=== PATIENT | female | born 1950 | race Caucasian/White ===

== ENCOUNTER 2016-06-14 16:53 | Emergency (ER) | payer SELFPAY ==
--- NOTE | ~2016-06-14 | CR63 ---
[facility]. [facility] A Service of [facility] RADIOLOGY TEXT RESULTS PATIENT: POLA EVERETT LOCATION: SED : 52 UNIT #: [id number] AGE: [address]: Carlos Barber MD SEX: F ORDER DR: [id number] [place] [id number] E MR#: [id number] Acc #: [id number] NAME: POLA EVERETT : 1950 SEX: F STUDY DATE/TIME: 06/14/2016 16:29 UNIT: SED ROOM: STUDY DESCRIPTION: CR Chest 2 View Attending Physician: Carlos Barber M.D. Ordering Physician: Carlos Barber M.D. Primary Care Physician: Keyur Miller M.D. MEDICAL IMAGING REPORT This report is preliminary unless electronic signature is present. EXAM Two view chest. HISTORY Body aches, cough, chills, congestion x4 days. COMPARISON 06/22/2015 FINDINGS Two views of the chest demonstrate moderate lung volumes, slightly underpenetrated technique. No infiltrates or effusions. Heart and mediastinum unremarkable. Coarse parenchymal markings may represent sequela of previous inflammatory disease. Osseous structures are unremarkable for age. IMPRESSION No active disease. Dictated by... Ami Mendez M.D. THIS IS AN ELECTRONICALLY VERIFIED REPORT Ami Mendez M.D. at 06/15/2016 10:05 AM KIMBERLEY/america TD: 06/15/2016 08:37 JOB #: [id number] [facility]. [facility] A Service [facility] RADIOLOGY TEXT RESULTS PATIENT: POLA EVERETT LOCATION: SED : 52 UNIT #: [id number] AGE: [address]: Carlos Barber MD SEX: F ORDER DR: MEDICAL IMAGING REPORT Page 1 of 1
[~2016-06-14 16:53] MED LIST: ALBUTEROL17 GM INH; ASPIRIN81 M1 PO; ASPIRIN81 MG PO; GLUCOPHAGE500 MG PO; LISINOPRIL20 MG PO; LORTAB 10-3251 EACH PO; LORTAB 10-5001 EACH PO; METFORMIN HCL500 M1 PO; PAXIL PO; PERCOCET 5/321 UDTAB PO; PERCOCET 7.5-31 EACH PO; PRAVASTATIN SOD40 MG PO; PRINIVIL10 MG PO; ROBITUSSIN DM PO; ZITHROMAX PO; ZITHROMAX1 G/PKT PO
[2016-06-14 16:57] LABS: INFLUENZA A NEG (NEG); INFLUENZA B NEG (NEG)
== END 2016-06-14 17:16 | disposition home or self-care (01) ==
LOC: SED 16:53
PROVIDERS: Emergency Medicine
DX: J06.9 Acute upper respiratory infection, unspecified (principal); E11.9 Type 2 diabetes mellitus without complications; I10 Essential (primary) hypertension; Z98.890 Other specified postprocedural states; Z88.0 Allergy status to penicillin; Z88.5 Allergy status to narcotic agent; Z79.899 Other long term (current) drug therapy; Z79.84 Long term (current) use of oral hypoglycemic drugs
CPT/HCPCS: 71020; 87804; 99283

== ENCOUNTER 2016-06-21 09:45 | Inpatient (IN) | payer MEDICARE ==
--- NOTE | ~2016-06-21 | CO ---
Unit #: [id number] #: [id number] Patient: POLA EVERETT [id number] [address] [place], [place] [address] [id number] I MR#: [id number] NAME: POLA EVERETT. ROOM: 568 Age: 66 Sex: F Admission Date: 06/21/2016 : 1950 Attending Physician: Mars Do M.D. Primary Care Physician: Keyur Miller M.D. Consultation Date: 06/22/2016 CONSULTATION REPORT REASON FOR CONSULTATION Possible pneumonia. HISTORY OF PRESENT ILLNESS The patient is a 66-year-old female who had a fairly impressive tobacco history but quit 15 years ago and was totally asymptomatic from a pulmonary point of view until about a week ago. She developed cough, wheezing and sputum production. She also had nausea, vomiting, diarrhea. She presented to the emergency room at [facility] and was treated with unclear medications. She had continued symptoms. She apparently was re-evaluated in the emergency room and, according to the EHR, she had saturations of 88% on room air, wheezing and was admitted. She has been treated with antibiotics intravenously for possible community-acquired pneumonia as well as steroids and breathing treatments. She feels dramatically better today. She states she can perform all activities of daily living and she is eating well. Her sputum production has resolved and her wheezing has improved. PAST MEDICAL HISTORY Remarkable for: 1. Hypertension. 2. Diabetes. 3. Anxiety/depression. 4. Chronic back pain. She denies lung disease. She denies heart disease. In fact, tells me that she had a cardiac catheterization two years ago that was "negative." MEDICATIONS Her medications at home: 1. She is on no inhaled medications, no oxygen. 2. She is on pravastatin. 3. Aspirin. 4. Glucophage. 5. Lisinopril. 6. Lortab. 7. Paxil. ALLERGIES Penicillin and codeine. SOCIAL HISTORY Quit smoking 15 years ago but a massive amount of tobacco use, smoking two or three packs a day for 28 years. Unit #: [id number] #: [id number] Patient: POLA EVERETT FAMILY HISTORY Colon cancer. REVIEW OF SYSTEMS Her nausea and vomiting have resolved. There is no documented fever although she felt warm. No chest pain, palpitations. She denies abdominal pain, melena, hematochezia, hematemesis. She has some aching in both left and upper quadrants when she coughs. No acute leg pain. She has some chronic pain. No leg swelling, focal weakness, paresthesias. Further review of systems negative. PHYSICAL EXAMINATION GENERAL: Examination reveals a patient who is in no acute distress. She is on 2 L of oxygen, 5 foot 7, 251 pounds. BMI is 39. VITAL SIGNS: She is afebrile, pulse 74, respiratory rate 16, blood pressure 128/59. HEENT: Pupils equal, round, reactive to light. Sclerae anicteric. Head atraumatic. Neck supple. No supraclavicular or cervical adenopathy appreciated. Mucous membranes moist. CHEST: Some expiratory wheeze, scattered. A few crackles which resolve with ventilation maneuvers. No definite consolidation, no stridor. CARDIAC EXAMINATION: Reveals a regular rate and rhythm. No pathologic murmur, rub or gallop. ABDOMEN: Soft, nontender. No hepatomegaly or rebound. EXTREMITIES: No clubbing, cyanosis or edema. No calf tenderness. SKIN: Warm and dry without rash or diaphoresis. NEUROLOGICAL: Grossly intact with no focal muscle or sensory deficits. DIAGNOSTIC STUDIES IMAGING: Chest x-ray was negative. LABORATORY: Glucose is 408, BUN is 18, creatinine 0.7, sodium mild low at 133, BNP is 13. Procalcitonin is negative and basically undetectable. INR was normal. Cardiac enzymes normal. CBC normal. Flu screen negative. Tox screen - glucosuria. Blood cultures performed and are pending. CARDIOVASCULAR: Rhythm strip - sinus. EKG - some nonspecific ST-T wave changes. IMPRESSION 1. Asthmatic bronchitis but no evidence of pneumonia. 2. Possible underlying chronic obstructive pulmonary disease, previously asymptomatic. 3. Hypoxic respiratory failure. 4. Diabetes with marked hyperglycemia secondary to steroids. 5. Hypertension. 6. Obesity, possible sleep apnea. PLAN Change to oral medications including Zithromax and prednisone for a short Unit #: [id number] #: [id number] Patient: POLA EVERETT abdon. I will add inhaled corticosteroids and long acting beta agonists. I would suggest continuing this for approximately six to eight weeks as an outpatient with re-evaluation in the office. We will check PFTs. I suspect that she will not need prolonged inhaled controlling agents. Given her multiple comorbid conditions, consider outpatient nocturnal polysomnography for sleep apnea. Thank you very much for allowing me to participate in the care of Ms. Everett. Dictated by... Hardik Null M.D. FAVIAN/heidi TD: 06/22/2016 11:36 JOB #: [id number] CONSULTATION REPORT Page 1 of 1 X Hardik Null MD X CONSULTATION REPORT
--- NOTE | ~2016-06-21 | HP ---
Unit #: [id number] #: [id number] Patient: POLA EVERETT [id number] [place] [id number] [facility]. [place], [place] [address] [id number] I MR#: [id number] NAME: POLA EVERETT. ROOM: 19207 Age: 66 Sex: F Admission Date: 06/21/2016 : 1950 Attending Physician: Raven Camilo M.D. Primary Care Physician: Keyur Miller M.D. HISTORY AND PHYSICAL CHIEF COMPLAINT Short of air, low oxygen saturation. HISTORY OF PRESENT ILLNESS The patient is a 66-year-old female with past medical history of diabetes, hypertension and chronic back pain who presented to the emergency department for evaluation of the above. The patient states that she has had about a 1-week history of increasing shortness of breath, productive cough, chills and undocumented fever. She has been feeling increasingly weak for the past couple of days. She states that she has been somewhat lightheaded and had a few falls. She denies any loss of consciousness. She states that she last fell yesterday. She states that she was getting up from a seated position and felt lightheaded and fell. She denies any chest pain. She states that she has had decreased appetite with 3 bouts of nonbloody emesis within the past 24 hours and 1-2 bouts of nonbloody diarrhea. The patient was seen at [facility] Emergency Department on June 14, 2016 and diagnosed with upper respiratory infection. She was discharged home with an unknown cough syrup. She presented to [facility] Emergency Department today for evaluation. Oxygen saturation was noted to be 88% on room air. Chest x-ray was negative. She was given Rocephin and azithromycin for clinical pneumonia. She is being admitted to [facility] for evaluation and further treatment. PAST MEDICAL HISTORY 1. Admission to [facility] October 24, 2009 for right upper quadrant pain. 2. Hypertension. 3. Diabetes. 4. Likely COPD. 5. Chronic back pain, maintained on narcotics. PAST SURGICAL HISTORY 1. . 2. Right Achilles tendon surgery. SOCIAL HISTORY The patient is a former smoker. She states that she smoked 2-3 packs of cigarettes for 28 years. She quit smoking 15 years ago. There is no Unit #: [id number] #: [id number] Patient: POLA EVERETT alcohol use. She lives with her son. FAMILY HISTORY Notable for her dad having colon cancer. ALLERGIES Penicillin and codeine. HOME MEDICATIONS 1. Pravastatin 40 mg daily. 2. Aspirin 81 mg daily. 3. Glucophage 500 mg daily. 4. Lisinopril HCTZ 20/12.5 daily. 5. Lortab 10/325 q.8 hours p.r.n. 6. Paxil, unknown dose. REVIEW OF SYSTEMS A complete review of systems is negative except as indicated in the HPI. The patient does not routinely check her blood sugars but states that, when she does, it is typically in the 100s. PHYSICAL EXAMINATION VITAL SIGNS: Temperature is 98.6, pulse 105, respirations 16, blood pressure 132/67, oxygen saturation 88% on room air. GENERAL: The patient is a female who is sleeping but awakes to voice. HEENT: The head is atraumatic. Mucous membranes are moist. NECK: Supple. Trachea is midline. CARDIOVASCULAR: Regular rate and rhythm. RESPIRATORY: Lungs demonstrate scattered wheezes and rhonchi. Breathing is not labored with conversation. ABDOMEN: Obese, soft, nontender with bowel sounds present in all 4 quadrants. EXTREMITIES: Extremities are nontender with no pedal edema. NEUROLOGIC: The patient is awake and alert. She follows commands. PSYCHIATRIC: Mood and affect are normal. The patient is cooperative. SKIN: Skin is generally diaphoretic. DIAGNOSTIC TESTS CARDIOVASCULAR: EKG shows sinus tachycardia with a rate of 107 beats per minute. IMAGING: Chest x-ray is negative. LABORATORY: Complete blood count is essentially normal. Rapid flu screen is negative. INR is 1.1. Comprehensive metabolic panel notable for sodium of 133, potassium 3.3, chloride 96, glucose 260. Lactic acid is 1.4. Troponin is less than 0.05. BNP is 13. Rapid strep screen in negative. Urinalysis notable for 500 glucose. ASSESSMENT 1. The patient is a 66-year-old female with acute respiratory failure, hypoxic. 2. Pneumonia, community acquired. The patient received Rocephin and azithromycin in the emergency department. 3. Hypokalemia with a potassium of 3.3. 4. Uncontrolled diabetes. Glucose was 260 on Accu-Cheks. 5. Likely COPD. The patient has a 90+ pack-year smoking history but did Unit #: [id number] #: [id number] Patient: POLA EVERETT quit 15 years ago. 6. Hypertension. 7. Chronic back pain, maintained on narcotics. 8. Morbid obesity with a BMI of 40. PLAN 1. Admit to intermediate level. 2. Healthy heart, consistent carb diet. 3. Supplemental oxygen at 2-4 liters to maintain saturations greater than 92%. 4. DuoNeb q.4 hours while awake and q.2 hours p.r.n. 5. Solu-Medrol 80 mg IV q.12 hours. 6. Mucinex 600 mg p.o. b.i.d. 7. Tessalon Perles 100 mg 1-2 p.o. t.i.d. p.r.n. 8. Blood cultures x2. 9. Sputum culture and sensitivity. 10. Check procalcitonin level. 11. Rocephin and azithromycin IV for community acquired pneumonia pending further workup. 12. Check magnesium level. 13. Potassium/magnesium protocol. 14. Hemoglobin A1C. 15. Low dose sliding scale insulin with Accu-Cheks. 16. Serial cardiac enzymes. 17. Tylenol p.r.n. 18. Zofran p.r.n. 19. Protonix for GI prophylaxis since the patient will be on Solu-Medrol. 20. SCDs for DVT prophylaxis. 21. Additional workup and consultants based on above. Dictated by Eric Mcnamara/ava TD: 06/21/2016 14:22 JOB #: [id number] HISTORY AND PHYSICAL Page 1 of 1 X Raven Camilo MD X HISTORY AND PHYSICAL
--- NOTE | ~2016-06-21 | A ---
[facility] Nutrition Therapy DATE: 06/23/16 Patient: POLA EVERETT Physician: RUBEN Address: [address] [facility] Room/Bed: [address] [place] [address], Zip: [place] [address] Admit Date: 06/21/16 Date of : [birth year] Height: 5 7 Weight: 252 114.6 NUTRITIONAL ASSESSMENT: REASON: Diet education RE: diabetes 66 yo female admitted for shortness of air Anthropometrics: Ht: 5'7" Wt: 114.5 kg (252#) BMI: 39.5 Assessment: RD video production intern provided written and verbal diabetic diet education. Pt reported eating "whatever, whenever". Pt stated blood sugars levels have been elevated in the 300-400s since admission, states normal level is ~160. Pt reports not eating consistently throughout the day, eating 1-2 meals/d. RD video production intern encouraged eating 3 meals/d with consistent carbohydrate intake during the day. RD video production intern encouraged portion control and gave suggestions for breakfast and snacks. Pt verbalized understanding of the topic. Pt asked questions, RD video production intern was able to respond appropriately. Expect moderate compliance with diet when d/c'd. RD video production intern to remain available upon request. Recommendations: 1. Encourage compliance with diabetic diet. 2. Reconsult RD if further diet education is needed/requested. RD will f/u per protocol. Respectfully, Gerri Granados, Carburetor Mechanic Osito Ramirez MS, RD, LD Food and Nutrition[facility] cc: client file
--- NOTE | ~2016-06-21 | EKG ---
PATIENT: POLA EVERETT UNIT #: [id number] Ventricular Rate: 107 BPM Atrial Rate: 107 BPM P-R Interval: 134 ms QRS Duration: 80 ms Q-T Interval: 382 ms QTC Calculation(Bezet): 509 ms P Buckland: 44 degrees Calculated R Buck[place]: 111 degrees Calculated T Buckland: 64 degrees Diagnosis Line: Sinus tachycardia Diagnosis Line: Right axis deviation Diagnosis Line: Cannot rule out Right ventricular hypertrophy Diagnosis Line: Nonspecific ST abnormality Diagnosis Line: Abnormal ECG Diagnosis Line: When compared with ECG of 22-JUN-2015 17:34, Diagnosis Line: QT has lengthened Diagnosis Line: Confirmed by LUC VELEZ MD ([id number]) on 06/21/2016 Diagnosis Line: 2:51:58 PM INTERPRETING MD: AGUSTIN MARTINEZ
--- NOTE | ~2016-06-21 | CR72 ---
[facility] A Service of [facility] RADIOLOGY TEXT RESULTS PATIENT: POLA EVERETT LOCATION: [facility] 568-01 : [birth year] UNIT #: [id number] AGE: [address]: Mars Do MD SEX: F ORDER DR: [id number] [facility] [address] [facility]. [place], [place] [address] [id number] MR#: [id number] Acc #: [id number] NAME: POLA EVERETT. : 1950 SEX: F STUDY DATE/TIME: 06/21/2016 9:39 UNIT: [facility] ROOM: 54074 STUDY DESCRIPTION: CR Chest Single View Portable Attending Physician: Raven Camilo M.D. Ordering Physician: Madie Galicia M.D. Primary Care Physician: Keyur Miller M.D. MEDICAL IMAGING REPORT This report is preliminary unless electronic signature is present EXAM Single view chest INDICATIONS Shortness of air, congestion and cough. TECHNIQUE/COMPARISON Single portable AP view of the chest compared to 06/14/2016 FINDINGS Heart and mediastinal contours normal. The lungs are clear. No pleural effusion. IMPRESSION No acute cardiopulmonary findings. Dictated by... Cayetano Husain M.D. THIS IS AN ELECTRONICALLY VERIFIED REPORT Cayetano Husain M.D. at 06/22/2016 2:11 PM C/shadi TD: 06/21/2016 18:03 JOB #: [id number] MEDICAL IMAGING REPORT Page 1 of 1 COPY
--- NOTE | ~2016-06-21 | DS ---
Unit #: [id number] #: [id number] Patient: POLA EVERETT [id number] [address] [place], [place] [address] [id number] I MR#: [id number] NAME: POLA EVERETT. ROOM: 568 Age: 66 Sex: F Admission Date: 06/21/2016 : 1950 Discharge Date: 06/23/2016 Attending Physician: Mars Do M.D. Primary Care Physician: Keyur Miller M.D. DISCHARGE SUMMARY FINAL DIAGNOSES 1. Bronchitis, not hypoxic. 2. Hypokalemia. 3. Hyperglycemia with uncontrolled diabetes mellitus with hemoglobin A1C of 10.2. 4. Headaches. SECONDARY DIAGNOSES 1. Hypertension. 2. Possible chronic obstructive pulmonary disease. 3. Chronic back pain. CONSULTS Dr. Null, Pulmonary. HOSPITAL COURSE The patient is a 66-year-old female with hypertension, likely COPD with diabetes mellitus that is uncontrolled, who presents with dyspnea, shortness of breath. She was seen and evaluated in the emergency room and admitted with a working diagnosis of pneumonia. Chest x-ray, however, was negative. It was felt that she may have had clinical community-acquired pneumonia but she was seen Pulmonary who did not really share that opinion. Her medications were adjusted and she is evaluated and suitable and stable for discharge for outpatient followup. During hospitalization, her sugars were in the four hundreds, probably secondary to the fact that her diabetes was under poor control initially in addition to the steroids she received. I did start her on Levemir 10 units in the morning which her sugars did tend drown from four hundreds to the three hundreds. The plan will be to discharge her with twice a day Levemir the same dose. She will get diabetic eduction prior to discharge. MEDICATIONS ON DISCHARGE 1. Zithromax 250 mg one tablet p.o. daily x4 days. 2. Prednisone 20 mg two tablets p.o. daily x4 days. 3. Symbicort 160/4.5 mcg two puffs inhalation b.i.d. 4. ProAir two puffs inhalation q.i.d. 5. Lisinopril/hydrochlorothiazide 20/12.5 mg one tablet p.o. daily per home dose. 6. Paxil 20 mg p.o. daily per home dose. 7. Glucophage 500 mg p.o. daily. 8. Tessalon Perles 100 mg one tablet to two tablets three times a day p.r.n. cough. 9. Humibid LA 600 mg p.o. b.i.d. for 7 days. 10. Pravastatin 40 mg p.o. daily. Unit #: [id number] #: [id number] Patient: POLA EVERETT 11. Levemir FlexPen 10 units subcu b.i.d. 12. Aspirin 81 mg p.o. daily. 13. Ewing 10/325 mg one tablet p.o. q.8 hourly p.r.n. per home dose. She will be offered the pneumonia shot prior to discharge. She will be discharged in stable condition with outpatient followup with her PCP in the next three to five days. Time spent coordinating discharge is about 33 minutes. The patient currently has a headache. We will give one liter of normal saline bolus as well as some Fioricet upon discharge. She did experience the headaches after the nebulizer treatment with Albuterol. She will be discharged in stable condition. Dictated by... Eric Israel TD: 06/23/2016 11:17 JOB #: [id number] DISCHARGE SUMMARY Page 1 of 1 X Mars Do MD X DISCHARGE SUMMARY
[2016-06-21 10:24] LABS: POC - CKMB <1.0 ng/mL (0.0-7.9); POC - TROPONIN <0.05 ng/mL (<=0.05)
[2016-06-21 10:26] LABS: BASOPHIL% 0.3 % (0-2.5); DIFF IND NO; EOSINOPHIL# 0.1 X10e3 (0-0.7); EOSINOPHIL% 0.7 % (0.0-7.0); HEMATOCRIT 46.4 % (35.0-45.0); HEMOGLOBIN 15.1 gm/dL (12.0-16.0); LYMPHOCYTE% 24.6 % (17.0-45.0); MEAN CELL VOLUME 85.8 FL (83-96); MEAN CORPUSCULAR HEMOGLOBIN 27.9 PG (28-34); MEAN CORPUSCULAR HGB CONC 32.5 g/dL (30-36); MEAN PLATELET VOLUME 7.9 FL (6.5-11.5); MONOCYTE% 12.5 % (3.0-12.0); NEUTROPHIL# 4.9 X10e3 (1.5-7.1); NEUTROPHIL% 61.9 % (40-75); PLATELET COUNT 199 X10e3 (140-420); RED BLOOD COUNT 5.41 X10e (3.90-5.30); RED CELL DISTRIBUTION WIDTH 13.6 % (11.0-15.5); WHITE BLOOD COUNT 7.9 X10e3 (4.0-10.5)
[2016-06-21 10:39] LABS: INFLUENZA A NEG (NEG); INFLUENZA B NEG (NEG)
[2016-06-21 10:40] LABS: INR 1.1; PARTIAL THROMBOPLASTIN TIME 26.8 SECONDS (23.5-31.3); PROTHROMBIN TIME (PATIENT) 11.8 SECONDS (9.6-11.5)
[2016-06-21 10:52] LABS: ALBUMIN SERUM 3.6 g/dL (3.5-5.0); BILIRUBIN, DIRECT 0.2 mg/dL (0.0-0.2); BILIRUBIN,INDIRECT 0.8 mg/dL (0.0-0.9); BUN/CREATININE RATIO 16.25; CALCIUM SERUM 8.6 mg/dL (8.4-10.2); CREATININE SERUM 0.8 mg/dL (0.6-1.4); POTASSIUM 3.3 mmol/L (3.5-5.1); PROTEIN TOTAL SERUM 7.2 g/dL (6.0-8.3)
[2016-06-21 12:04] LABS: POC - CKMB <1.0 ng/mL (0.0-7.9); POC - TROPONIN <0.05 ng/mL (<=0.05)
[2016-06-21 12:07] LABS: URINE SOURCE CLEAN CATCH
[2016-06-21 12:12] LABS: URINE APPEARANCE CLOUDY; URINE BILIRUBIN NEG (NEG); URINE BLOOD NEG (NEG); URINE COLOR YELLOW; URINE GLUCOSE 500 MG/DL (NEG); URINE KETONE 2+ (NEG); URINE LEUKOCYTE ESTERASE NEG (NEG); URINE NITRATE NEG (NEG); URINE PH 5.5 (5-8); URINE PROTEIN NEG (NEG); URINE SPECIFIC GRAVITY 1.029 (1.003-1.035); URINE UROBILINOGEN 0.2 MG/DL (NEG)
[2016-06-21] MEDS ORDERED: PRAVASTATIN SOD40 MG PO (12:17)
[2016-06-21] MEDS ORDERED: ASPIRIN81 M2 PO (12:17)
[2016-06-21] MEDS ORDERED: PAXIL PO (12:18)
[2016-06-21] MEDS ORDERED: GLUCOPHAGE500 MG PO (12:18)
[2016-06-21] MEDS ORDERED: LISINOPRIL-HCTZ1 T14 PO (12:19)
[2016-06-21] MEDS ORDERED: LORTAB 10-3251 EACH PO (12:20)
[2016-06-21 12:22] LABS: CULTURE INDICATED? NO
[2016-06-21 15:06] LABS: MAGNESIUM 1.7 mg/dL (1.6-3.0)
[2016-06-21 15:44] LABS: PROCALCITONIN <0.05 NG/ML
[2016-06-21 19:08] LABS: MB 1.2 ng/ml
[2016-06-22 01:20] LABS: %MB 1.7 % (0.0-4.0); MB 1.9 ng/ml
[2016-06-22 06:36] LABS: BASOPHIL% 0.1 % (0-2.5); HEMATOCRIT 43.1 % (35.0-45.0); HEMOGLOBIN 13.9 gm/dL (12.0-16.0); LYMPHOCYTE# 1.1 X10e3 (1.0-3.5); LYMPHOCYTE% 19.3 % (17.0-45.0); MEAN CELL VOLUME 86.9 FL (83-96); MEAN CORPUSCULAR HEMOGLOBIN 28.1 PG (28-34); MEAN CORPUSCULAR HGB CONC 32.4 g/dL (30-36); MEAN PLATELET VOLUME 8.2 FL (6.5-11.5); MONOCYTE# 0.2 X10e3 (0-1.0); NEUTROPHIL# 4.4 X10e3 (1.5-7.1); NEUTROPHIL% 77.6 % (40-75); PLATELET COUNT 198 X10e3 (140-420); RED BLOOD COUNT 4.96 X10e (3.90-5.30); RED CELL DISTRIBUTION WIDTH 13.5 % (11.0-15.5); WHITE BLOOD COUNT 5.6 X10e3 (4.0-10.5)
[2016-06-22 06:40] LABS: DIFF IND NO
[2016-06-22 07:09] LABS: ALBUMIN SERUM 3.4 g/dL (3.5-5.0); BILIRUBIN,TOTAL 0.6 mg/dL (0.2-2.0); BUN/CREATININE RATIO 25.71; CALCIUM SERUM 8.7 mg/dL (8.4-10.2); CREATININE SERUM 0.7 mg/dL (0.6-1.4); GLOM FILT RATE Estimated 91.6 mL/min (>60); MAGNESIUM 2.4 mg/dL (1.6-3.0); POTASSIUM 4.7 mmol/L (3.5-5.1); PROTEIN TOTAL SERUM 6.9 g/dL (6.0-8.3)
[2016-06-23] MEDS ORDERED: PREDNISONE PO (15:42)
[2016-06-23] MEDS ORDERED: BENZONATATE PO (15:43)
[2016-06-23] MEDS ORDERED: ACETAMINOPHEN PO (15:43)
[2016-06-23] MEDS ORDERED: DULERA 100 MCG/13 GM INH (15:44)
[2016-06-23] MEDS ORDERED: LISINOPRIL20 MG PO (15:44)
[2016-06-23] MEDS ORDERED: AZITHROMYCIN250 MG PO (15:45)
[2016-06-23] MEDS ORDERED: LEVEMIR100 UNITS/ SUBQ (15:45)
== END 2016-06-23 17:42 | disposition home or self-care (01) | DRG 189 ==
LOC: CED 09:45 → CEDOF 13:40 → C5C 22:07
PROVIDERS: Emergency Medicine; Family Medicine
DX: J96.01 Acute respiratory failure with hypoxia (principal); E11.65 Type 2 diabetes mellitus with hyperglycemia; J44.9 Chronic obstructive pulmonary disease, unspecified; Z68.41 Body mass index [BMI] 40.0-44.9, adult; I10 Essential (primary) hypertension; E66.01 Morbid (severe) obesity due to excess calories; E87.6 Hypokalemia; R51 Headache; M54.9 Dorsalgia, unspecified; Z87.891 Personal history of nicotine dependence; J20.9 Acute bronchitis, unspecified; Z79.84 Long term (current) use of oral hypoglycemic drugs; Z79.82 Long term (current) use of aspirin; Z88.0 Allergy status to penicillin; Z88.5 Allergy status to narcotic agent; J45.909 Unspecified asthma, uncomplicated
CPT/HCPCS: 36415; 51701; 71010; 80048; 80053; 80076; 81003; 82308; 82550; 82553; 82947; 83036; 83605; 83735; 83880; 84132; 84484; 85025; 85610; 85730; 87040; 87070; 87205; 87651; 87804; 93005; 94640; 94760; 96365; 96367; 96375; 99285; J0456; J0696; J1815; J2405; J2930; J3475